=== PATIENT | female | born 1950 | race Caucasian/White ===

== ENCOUNTER 2020-12-12 09:07 | Outpatient (CLI) | payer MEDICARE, SELFPAY ==
--- NOTE | 2020-12-12 11:15 | NEURO_ITS ---
Impression: # Complains of numbness. # Mild right Carpal Tunnel Syndrome. # Right ulnar neuropathy around the elbow. # Normal needle/EMG exam. Nerve Conduction Studies Anti Sensory Summary Table Stim Site NR Peak (ms) P-T Amp (?V) Site1 Site2 Delta-P (ms) Dist (cm) Dixon (m/s) Left Median Anti Sensory (2-3nd Digit) Wrist 2.8 44.1 Wrist 2-3nd Digit 2.8 14.0 50 Wrist 2.8 54.6 Wrist 2-3nd Digit 2.8 14.0 50 Right Median Anti Sensory (2-3nd Digit) Wrist 4.7 18.4 Wrist 2-3nd Digit 4.7 14.0 30 Wrist 5.3 5.8 Wrist 2-3nd Digit 4.7 14.0 30 Left Radial Anti Sensory (Base 1st Digit) Wrist 2.0 28.0 Wrist Base 1st Digit 2.0 0.0 Right Radial Anti Sensory (Base 1st Digit) Wrist 2.1 21.2 Wrist Base 1st Digit 2.1 0.0 Left Ulnar Anti Sensory (5th Digit) Wrist 2.4 56.4 Wrist 5th Digit 2.4 14.0 58 Right Ulnar Anti Sensory (5th Digit) Wrist 2.6 72.8 Wrist 5th Digit 2.6 14.0 54 Motor Summary Table Stim Site NR Onset (ms) O-P Amp (mV) Site1 Site2 Delta-0 (ms) Dist (cm) Dixon (m/s) Left Median Motor (Abd Poll Brev) Wrist 3.1 5.1 Elbow Wrist 4.9 27.0 55 Elbow 8.0 5.0 Right Median Motor (Abd Poll Brev) Wrist 3.4 4.4 Elbow Wrist 4.7 27.0 57 Elbow 8.1 3.8 Left Ulnar Motor (Abd Dig Minimi) Wrist 2.4 7.2 A Elbow Wrist 4.9 27.0 55 A Elbow 7.3 4.9 B Elbow Wrist 3.6 20.0 56 B Elbow 6.0 2.6 Right Ulnar Motor (Abd Dig Minimi) Wrist 2.0 4.1 A Elbow Wrist 5.5 28.0 51 A Elbow 7.5 3.8 B Elbow Wrist 4.4 20.0 45 B Elbow 6.4 4.0 F Wave Studies NR F-Lat (ms) L-R F-Lat (ms) Left Median (Mrkrs) (Abd Poll Brev) 27.58 0.16 Right Median (Mrkrs) (Abd Poll Brev) 27.42 0.16 Left Ulnar (Mrkrs) (Abd Dig Min) 26.78 0.03 Right Ulnar (Mrkrs) (Abd Dig Min) 26.81 0.03 EMG Side Muscle Nerve Root Ins Act Fibs Amp Dur Recrt Comment Right 1stDorInt Ulnar C8-T1 Nml Nml Nml Nml Nml Right Ext Indicis Radial (Post Int) C7-8 Nml Nml Nml Nml Nml Right Ext Digitorum Radial (Post Int) C7-8 Nml Nml Nml Nml Nml Right BrachioRad Radial C5-6 Nml Nml Nml Nml Nml Right PronatorTeres Median C6-7 Nml Nml Nml Nml Nml Right Abd Poll Brev Median C8-T1 Nml Nml Nml Nml Nml Left 1stDorInt Ulnar C8-T1 Nml Nml Nml Nml Nml Left Ext Indicis Radial (Post Int) C7-8 Nml Nml Nml Nml Nml Left Ext Digitorum Radial (Post Int) C7-8 Nml Nml Nml Nml Nml Left BrachioRad Radial C5-6 Nml Nml Nml Nml Nml Left PronatorTeres Median C6-7 Nml Nml Nml Nml Nml Left Abd Poll Brev Median C8-T1 Nml Nml Nml Nml Nml MTDD
== END 2020-12-12 09:08 | disposition home or self-care (01) ==
PROVIDERS: PCP Family Medicine; Visit Provider Family Medicine
DX: G56.01 Carpal tunnel syndrome, right upper limb (principal); G56.21 Lesion of ulnar nerve, right upper limb
CPT/HCPCS: 95886; 95911

== ENCOUNTER 2024-08-18 09:24 | Outpatient (CLI) | payer MEDICARE, SELFPAY ==
--- NOTE | ~2024-08-18 | US_ITS ---
EXAM: Focused ultrasound examination of the soft tissues of the left upper extremity, central to the antecubital fossa HISTORY: M79.89 - Other specified soft tissue disorders describes swelling and pain in the left upper extremity. TECHNIQUE: Sonographic evaluation of the soft tissues of the left upper extremity were performed asse ssing grayscale appearance and color Doppler flow. COMPARISON: None. FINDINGS: Sonographic evaluation of the soft tissues of the left upper extremity demonstrate benign fibrofatty and fibromuscular elements without a cystic or solid lesion of concern. IMPRESSION: No sonographic abnormality is appreciated on focused ultrasound examination within the left upper ext remity, specifically within the areas of concern. Reviewed, dictated and finalized at location A. IMPRESSION: No sonographic abnormality is appreciated on focused ultrasound examination wit hin the left upper extremity, specifically within the areas of concern.
== END 2024-08-18 09:25 | disposition home or self-care (01) ==
LOC: MICIMG 09:27
PROVIDERS: PCP Family Medicine; Visit Provider Family Medicine
DX: M79.89 Other specified soft tissue disorders (principal)
CPT/HCPCS: 76882

== ENCOUNTER 2024-11-12 09:39 | Outpatient (CLI) | payer MEDICARE, SELFPAY ==
--- NOTE | ~2024-11-12 | CT_ITS ---
CT Scan of the Chest without Contrast: Clinical Indication: Lung cancer screening, nicotine dependence Technique: Contiguous sections were acquired throughout the chest without intravenous contrast. Dose reduction technique was used on this scan by utilizing automated exposure control and iterative recon struction technique. The dose-length product (DLP) was 61.42 mGy-cm. Findings: There is no evidence of any significant mediastinal, hilar or axillary lymphadenopathy. Small calcifi ed right hilar lymph nodes are present. Coronary artery calcifications are present. There is no evidence of pleural or pericardial effusion. Calcified right lower lobe granulomas are present. Images through the upper abdomen reveal no abnormalities. Impression: Lung RADS 2: Benign appearance. 12 month follow-up screening CT advised. Reviewed, dictated and finalized at location . Impression: Lung RADS 2: Benign appearance. 12 month follow-up screening CT advised.
== END 2024-11-12 09:40 | disposition home or self-care (01) ==
LOC: MICIMG 09:40
PROVIDERS: PCP Family Medicine; Visit Provider Family Medicine
DX: Z12.2 Encounter for screening for malignant neoplasm of respiratory organs (principal); F17.210 Nicotine dependence, cigarettes, uncomplicated
CPT/HCPCS: 71271

== ENCOUNTER 2024-12-10 08:06 | Outpatient (CLI) | payer MEDICARE, SELFPAY ==
--- NOTE | ~2024-12-10 | DEXA_ITS ---
Bone Density Report Name: FELICIANO KENNEDY Age: 74 Sex: Female Ethnicity: White Date of : 1950 Indication: postmenopausal; screening for osteoporosis; prior fracture; cancer; Referring Provider: WESLY HICKS Study: Bone densitometry was performed. Exam Date: December 10, 2024 Accession number: [id number] Bone Density: Region BMD T-score Z-score Classification AP Spine(L1-L4) 1.099 0.5 2.8 Normal Femoral Neck (Left) 0.747 -0.9 1.1 Normal Total Hip (Left) 0.975 0.3 2.0 Normal Femoral Neck (Right) 0.714 -1.2 0.8 Osteopenia Total Hip (Right) 0.986 0.4 2.0 Normal Total Hip Mean 0.981 0.4 2.0 Normal World Health Organization criteria for BMD impression classify patients as: Normal (T-score at or above -1.0), Osteopenia (T-score between -1.0 and -2.5), or Osteoporosis (T-score at or below -2.5). 10-year Fracture Risk(1): Major Osteoporotic Fracture 16% Hip Fracture 3.7% Reported Risk Factors: [place] (), Neck BMD=0.714, BMI=26.3, previous fracture, smoking (1) FRAX(R) Version 3.08. Fracture probability calculated for an untreated patient. Fracture probability may be lower if the patient has received treatment. Clinical Information Provided by Patient: Has had a low trauma fracture Smokes Has used the following medications: Vitamin D, Calcium Has the following medical conditions: Cancer Patient maximum height was 61.5 Menopause Age: 55 No regular weight bearing exercise Drinks caffeinated beverages Onset of menses at age 16 Number of children 3 Impression: The patient has low bone mass, based on the Right Femoral Neck T-score. The patient has an estimated ten-year risk of hip fracture of 3.7% and an estimated ten-year risk of major fracture of 16%, based on the WHO FRAX algorithm. The patient has risk factors, including: smoking, previous fracture. Discussion: BONE DENSITY IS LOW AT ONE OR MORE SKELETAL SITES. THE PATIENT'S BMD AND CLINICAL RISK FACTORS CONTRIBUTE TO THIS PATIENT'S INCREASED RISK OF FRACTURE. This patient's lowest T-score is low at one or more skeletal sites. It meets the World Health Organization's (WHO) criteria for ?low bone mass? (T-score between -1.0 and -2.5). The patient's 10-year risk of hip fracture as calculated by FRAX exceeds the threshold where pharmacological therapy is recommended by the National Osteoporosis Foundation (NOF). However, all treatment decisions require clinical judgment and consideration of individual patient factors, including patient preferences, comorbidities, previous drug use, risk factors not captured in the FRAX model (e.g., frailty, falls, vitamin D deficiency, increased bone turnover, interval significant decline in bone density) and possible under or overestimation of fracture risk by FRAX. The patient should follow a healthful lifestyle (good nutrition with adequate calcium and vitamin D, and appropriate weight-bearing exercise). Follow-Up: Consider a repeat BMD and Vertebral Fracture Assessment (VFA) exam in 2 years or sooner if medically necessary, to reassess this patient's status. Reported by: MARIBEL on 12/10/2024 8:37:00 AM. Reviewed, dictated and finalized at location A.
== END 2024-12-10 08:07 | disposition home or self-care (01) ==
PROVIDERS: PCP Family Medicine; Visit Provider Family Medicine
DX: Z78.0 Asymptomatic menopausal state (principal); M85.851 Other specified disorders of bone density and structure, right thigh
CPT/HCPCS: 77080

== ENCOUNTER 2025-04-04 10:58 | Outpatient (CLI) | payer MEDICARE, SELFPAY ==
--- NOTE | ~2025-04-04 | CT_ITS ---
EXAM/PROCEDURE: CT shoulder LT wo/w con HISTORY: Pain in left shoulder COMPARISON: None available. TECHNIQUE: Left shoulder CT FINDINGS: No fracture subluxation or dislocation. 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 No large joint effusion present. No obviously retracted rotator cuff tear; the rotator cuff muscles appear normal in size on the sagittal oblique images. Within the visualized portion of the lungs, mild to moderate diffuse peripheral and subpleural reticular changes are noted in the visualized left lung. Visualized portions of the subclavian, as well as the left axillary and brachial arteries within the field of view are patent. No suspicious mass or drainable fluid collection. IMPRESSION: 1. Moderate degenerative changes about the left shoulder. 2. Pulmonary findings as above. See also report for chest CT dated November 12, 2024. Reviewed, dictated and finalized at location A. [employer] DIE IMPRESSION: 1. Moderate degenerative changes about the left shoulder. 2. Pulmonary findings as above. See also report for chest CT dated November 12 5.
[2025-04-04 11:36] LABS: Estimated Glomerular Filt Rate > 60
== END 2025-04-04 10:59 | disposition home or self-care (01) ==
LOC: MICIMG 11:02
PROVIDERS: PCP Family Medicine; Visit Provider Nurse Practitioner
DX: M19.012 Primary osteoarthritis, left shoulder (principal)
CPT/HCPCS: 73202; Q9967

== ENCOUNTER 2025-05-17 12:17 | Outpatient (CLI) | payer MEDICARE, SELFPAY ==
--- NOTE | ~2025-05-17 | MM_ITS ---
EXAMINATION: MM screening [facility] BI w nicole HISTORY: Z12.39 - Encounter for other screening for malignant neoplasm TECHNIQUE: Craniocaudal and mediolateral oblique 3-D tomosynthesis images were obtained and synthetic 2-D images were generated. CAD analysis was submitted and interpreted. COMPARISON: None available. BREAST PARENCHYMAL COMPOSITION: The breast tissue is heterogeneously dense, which may obscure small masses. FINDINGS: There is a circumscribed mass in the posterior 1:00 left breast. There are some coarse calcifications lying in the soft tissue structure in the medial posterior left breast. No suspicious masses are seen. There are no suspicious calcifications. No unexplained architectural distortion is seen. There are no skin or nipple abnormalities identified. There is no adenopathy seen on the images submitted. IMPRESSION: Ultrasound is recommended for the mass in the left breast. Additional mammographic and sonographic images are recommended for the soft tissue structure containing coarse calcifications. BI-RADS 0 - Incomplete - needs additional imaging Reviewed, dictated and finalized at location C. F INSPECTOR IMPRESSION: Ultrasound is recommended for the mass in the left breast. Additional mammograp hic and sonographic images are recommended for the soft tissue structure contai elli coarse calcifications. BI-RADS 0 - Incomplete - needs additional imaging
== END 2025-05-17 12:18 | disposition home or self-care (01) ==
LOC: MICIMG 12:17
PROVIDERS: PCP Family Medicine; Visit Provider Family Medicine
DX: Z12.31 Encounter for screening mammogram for malignant neoplasm of breast (principal)
CPT/HCPCS: 77063; 77067